=== PATIENT | female | born 1990 | race African-American/Black ===

== ENCOUNTER 2019-07-04 16:17 | Emergency (ER) | payer OTHER ==
[~2019-07-04] VITALS: Ht 172.7 cm; Wt 82.0 kg
[2019-07-04] MEDS ORDERED: ONDANSETRON HCL 4MG/2ML INJ IV STA (17:24)
[2019-07-04] MEDS ORDERED: SODIUM CHLORIDE 0.9% 1,000 ML IV ONE (17:24)
[2019-07-04] MEDS ORDERED: ALBUTEROL 6.7GM HFA INHALER ORI ONE (17:30)
[2019-07-04 17:38] LABS: CHLORIDE 99 mEq/L (98-107)
[2019-07-04 17:39] LABS: CLARITY URINE CLOUDY (CLEAR); COLOR URINE DARK YELLOW (YELLOW); KETONES URINE 3+ (NEGATIVE); LEUKOCYTE ESTERASE URINE 2+ (NEGATIVE); NITRITE URINE NEGATIVE (NEGATIVE); OCCULT BLOOD URINE NEGATIVE (NEGATIVE); PROTEIN URINE 1+ (NEGATIVE); SPECIFIC GRAVITY URINE 1.031 (1.005-1.030)
[2019-07-04 17:40] LABS: INR 1.1; PROTHROMBIN TIME 11.4 sec (9.6-11.0)
[2019-07-04] MEDS ORDERED: ONDANSETRON 4MG ODT PO ONE (19:15)
[2019-07-04] MEDS ORDERED: KETOROLAC 30MG/ML VIAL IV ONE (21:45)
[2019-07-04] MEDS ORDERED: CEFTRIAXONE 1 G PREMIX 50 ML IV ONE (21:45)
[2019-07-04] MEDS ORDERED: ONDANSETRON HCL 4MG/2ML INJ IV SCH (23:15)
[2019-07-04 23:19] VITALS: BP 130/82
== END 2019-07-05 00:05 | disposition home or self-care (01) ==
LOC: ER 16:17
DX: N39.0 Urinary tract infection, site not specified (principal); E86.0 Dehydration; R11.2 Nausea with vomiting, unspecified; J45.909 Unspecified asthma, uncomplicated; R10.13 Epigastric pain; Z91.010 Allergy to peanuts
CPT/HCPCS: 36415; 71045; 80053; 81003; 81025; 83690; 85610; 87086; 96361; 96365; 96375; 99285; J0696; J1885; J2405; J7030; Q0162